=== PATIENT | male | born 1950 | race Caucasian/White ===

== ENCOUNTER 2017-07-31 10:37 | Emergency (ER) | payer MEDICARE ==
[~2017-07-31] VITALS: Ht 188 cm; Wt 100.9 kg
[2017-07-31] MEDS ORDERED: LOVASTATIN20 M2 PO (10:53)
[2017-07-31 11:07] LABS: CARBON DIOXIDE-VENOUS 24 mmol/L (21-33); CREATININE 0.88 mg/dl (0.60-1.130); GLUCOSE 118 mg/dl (65-120); SODIUM 139 mmol/L (135-146); eGFR VALUE FOR BLACK >90 mL/Min
[2017-07-31 11:09] LABS: BASO % 1.5 % (0-2); BASO ABSOLUTE COUNT 0.1 tho/cmm (0.0-0.2); EOS % 7.6 % (0-7); EOSINOPHIL ABSOLUTE COUNT 0.5 tho/cmm (0.0-0.7); HCT-HEMATOCRIT 44.9 % (36.0-53.5); HGB-HEMOGLOBIN 15.9 gm/dl (13.5-17.0); IMMATURE GRANULOCYTES ABSOLUTE 0.01 tho/cmm (0-0.03); IMMATURE GRANULOCYTES PERCENT 0.2 % (0-0.3); LYMPH ABSOLUTE COUNT 2.3 tho/cmm (0.8-4.5); MCHC MEAN CORPUSCULAR HGB CONC 35.4 % (32.0-36.0); MCV (MEAN CELL VOLUME) 90.3 fl (82.0-96.0); MEAN PLATELET VOLUME 10.7 cmc (9.4-12.4); MONO % 8.2 % (0-12); MONOCYTE ABSOLUTE COUNT 0.5 tho/cmm (0.0-1.2); NEUTROPHIL ABSOLUTE COUNT 3.1 tho/cmm (1.6-8.0); NEUTROPHIL-AUTOMATED 3.1 tho/cmm (1.6-8.0); NEUTROPHILS % 47.5 % (40-80); PLATELET COUNT 254 tho/cmm (150-450); RED BLOOD COUNT 4.97 mil/cmm (4.40-5.70); RED CELL DISTRIBUTION WIDTH 12.9 % (12.4-16.4); WHITE BLOOD COUNT 6.6 tho/cmm (4.0-10.0)
[2017-07-31 11:14] LABS: PROTHROMBIN TIME 11.4 SECONDS (9.0-13.6)
[2017-07-31 11:30] LABS: ALBUMIN 3.9 g/dl (3.5-5.0); ALKALINE PHOSPHATASE 73 U/L (33-138); ALT/SGPT 30 U/L (12-78); AST/SGOT 27 U/L (10-40); BILIRUBIN,TOTAL 0.4 mg/dl (0.0-1.5); BLOOD UREA NITROGEN 20 mg/dl (6-24); CALCIUM 9.2 mg/dl (8.5-10.5); CHLORIDE 110 mmol/l (96-110)
[2017-07-31 11:32] LABS: ANION GAP 9 mmol/L (0-20)
[2017-07-31 11:36] LABS: ESR-ERYTHROCYTE SED RATE 2 mm/hr (0-20)
== END 2017-07-31 12:08 ==
LOC: EDBD 10:37 → EDMED 10:37
PROVIDERS: Emergency Medicine
DX: I66.9 Occlusion and stenosis of unspecified cerebral artery (principal); E78.5 Hyperlipidemia, unspecified
CPT/HCPCS: J2997; J7030; Q9967